=== PATIENT | female | born 1940 | race Asian ===

== ENCOUNTER 2022-02-26 14:00 | Inpatient (IN) | payer MEDICAID ==
[~2022-02-26] VITALS: Ht 162.6 cm; Wt 46.5 kg
[2022-02-26] MEDS ORDERED: methylPREDNISolone SOD SUCC 125 MG/2 ML VL IV ONE (15:15)
[2022-02-26] MEDS ORDERED: cefTRIAXone 1GM/50ML D5W 50 ML IV ONE (15:15)
[2022-02-26] MEDS ORDERED: AZITHROMYCIN 500MG/ 250ML 250 ML IV ONE (15:15)
[2022-02-26 15:25] LABS: Albumin 3.3 g/dL (3.4-5.0); BUN/Creatinine Ratio 31.7; Potassium 3.3 mmol/L (3.5-5.1)
[2022-02-26 15:28] LABS: Bilirubin, Total 0.8 mg/dL (0.2-1.0); Total Protein 7.3 g/dL (6.4-8.2)
[2022-02-26 15:31] LABS: INR 0.97 (0.9-1.15); Partial Thromboplastin Time 29.1 sec (24.6-33.4)
[2022-02-26 15:48] LABS: Basophils # (auto) 0 10 ^3/uL (0-0.2); Basophils % (auto) 0.3 % (0.0-2.0); Eosinophils # (auto) 0.1 10 ^3/uL (0-0.8); Eosinophils % (auto) 1.3 % (0.0-7.0); Hemoglobin 14.5 g/dL (12.2-16.2); Lymphocytes # (auto) 1.2 10 ^3/uL (0.4-5.4); Lymphocytes % (auto) 13.1 % (10.0-50.0); Mean Corpuscular Hemoglobin 31.4 pg (28.0-32.0); Mean Corpuscular Hgb Conc. 33.8 g/dL (32.0-36.0); Mean Corpuscular Volume 92.6 fL (80.0-100.0); Monocytes # (auto) 0.9 10 ^3/uL (0-1.3); Monocytes % (auto) 9.7 % (0.0-12.0); Neutrophils # (auto) 6.9 10 ^3/uL (1.6-8.6); Neutrophils % (auto) 75.6 % (37.0-80.0); Nucleated Red Blood Cells % 0.1 %; Red Blood Cells 4.64 10^6/uL (4.0-5.20); Red Cell Distribution Width 14.1 % (11.8-14.3); White Blood Cell 9.1 10^3/uL (4.4-10.8)
[2022-02-26] MEDS ORDERED: hydrALAZINE HCL 20 MG/ML VL IV ONE (16:00)
[2022-02-26] MEDS ORDERED: ACETAMINOPHEN 500 MG TAB PO PRN (16:30)
[2022-02-26] MEDS ORDERED: MORPHINE SULFATE INJ 2 MG/ml SYRG IV PRN (16:30)
[2022-02-26] MEDS ORDERED: NITROGLYCERIN 0.4 MG SL TAB SL PRN (16:30)
[2022-02-26] MEDS ORDERED: REMDESIVIR PER PHARMACY 0 ML IV SCH (16:30)
[2022-02-26] MEDS ORDERED: LISINOPRIL 10 MG TAB PO ONE (16:30)
[2022-02-26] MEDS ORDERED: PANTOPRAZOLE 40 MG/10 ML VIAL INJ IV ONE (16:45)
[2022-02-26 17:23] LABS: Magnesium 2.2 mg/dL (1.6-2.6)
[2022-02-26 17:31] LABS: CRP High Sensitivity 3.81 mg/dL (< 0.3)
[2022-02-26 17:37] LABS: Thyroid Stimulating Hormone 2.27 uIU/mL (0.358-3.74)
[2022-02-26] MEDS: SODIUM CHLORIDE 0.9% 1,000 ML IV SCH (17:55)
[2022-02-26] MEDS ORDERED: REMDESIVIR 200 MG in NS 210ml LOADING DOSE ADULT IV ONE (18:00)
[2022-02-26 18:51] LABS: Lactic Acid w/Reflex 2.1 mmol/L (0.4-2.0)
[2022-02-26] MEDS: BUDESONIDE (INHALATION) 180 MCG IH IN SCH (22:00)
[2022-02-26] MEDS: ENOXAPARIN SOD 40 MG/0.4 ML SYRINGE SC SCH (22:52)
[2022-02-26 22:59] VITALS: BP 140/84
[2022-02-27] MEDS: ALBUTEROL SULF HFA 90MCG INH 200DOSE IN PRN ×2 (02:43→22:23)
[2022-02-27 06:23] LABS: Basophils # (auto) 0 10 ^3/uL (0-0.2); Basophils % (auto) 0.1 % (0.0-2.0); Eosinophils # (auto) 0 10 ^3/uL (0-0.8); Hematocrit 39.7 % (36.0-46.0); Hemoglobin 13.2 g/dL (12.2-16.2); Lymphocytes # (auto) 0.9 10 ^3/uL (0.4-5.4); Lymphocytes % (auto) 11.4 % (10.0-50.0); Mean Corpuscular Hemoglobin 31.2 pg (28.0-32.0); Mean Corpuscular Hgb Conc. 33.2 g/dL (32.0-36.0); Mean Corpuscular Volume 93.8 fL (80.0-100.0); Monocytes # (auto) 0.8 10 ^3/uL (0-1.3); Monocytes % (auto) 9.6 % (0.0-12.0); Neutrophils # (auto) 6.6 10 ^3/uL (1.6-8.6); Neutrophils % (auto) 78.9 % (37.0-80.0); Red Blood Cells 4.23 10^6/uL (4.0-5.20); White Blood Cell 8.3 10^3/uL (4.4-10.8)
[2022-02-27 06:34] LABS: Albumin 2.8 g/dL (3.4-5.0); BUN/Creatinine Ratio 37.5; Calcium 8.8 mg/dL (8.5-10.1); Potassium 3.4 mmol/L (3.5-5.1)
[2022-02-27 06:36] LABS: Bilirubin, Total 0.4 mg/dL (0.2-1.0); Total Protein 6.8 g/dL (6.4-8.2)
[2022-02-27] MEDS: SODIUM CHLORIDE 0.9% 1,000 ML IV SCH (09:00)
[2022-02-27] MEDS ORDERED: PANTOPRAZOLE 40 MG/10 ML VIAL INJ IV SCH (10:00)
[2022-02-27] MEDS: DexAMETHasone SOD PHOS 10MG/1ML VIAL INJ IV SCH (10:42)
[2022-02-27] MEDS: ENOXAPARIN SOD 40 MG/0.4 ML SYRINGE SC SCH ×2 (10:42→21:41)
[2022-02-27] MEDS: AZITHROMYCIN 500MG/ 250ML 250 ML IV SCH (10:42)
[2022-02-27] MEDS: LISINOPRIL 10 MG TAB PO SCH (10:43)
[2022-02-27] MEDS: BUDESONIDE (INHALATION) 180 MCG IH IN SCH (11:38)
[2022-02-27] MEDS ORDERED: IOHEXOL 350 MG/ML 100ML IJ ONE (13:30)
[2022-02-27] MEDS: REMDESIVIR 100mg 100 MG in SODIUM CHL 0.9% 230 ML IV SCH (15:35)
[2022-02-27] MEDS ORDERED: POTASSIUM EFFERVESENT TAB 25 MEQ PO ONE (21:00)
[2022-02-28 02:06] VITALS: BP 156/95
[2022-02-28 05:00] VITALS: BP 136/88
[2022-02-28 08:00] VITALS: BP 129/90
[2022-02-28 08:13] LABS: Albumin 2.9 g/dL (3.4-5.0); Calcium 8.4 mg/dL (8.5-10.1); Potassium 3.4 mmol/L (3.5-5.1)
[2022-02-28 08:17] LABS: BUN/Creatinine Ratio 39.3; Bilirubin, Total 0.6 mg/dL (0.2-1.0); Total Protein 6.2 g/dL (6.4-8.2)
[2022-02-28] MEDS: DexAMETHasone SOD PHOS 10MG/1ML VIAL INJ IV SCH (09:51)
[2022-02-28] MEDS: AZITHROMYCIN 500MG/ 250ML 250 ML IV SCH (09:52)
[2022-02-28] MEDS: ENOXAPARIN SOD 40 MG/0.4 ML SYRINGE SC SCH ×2 (09:52→21:42)
[2022-02-28] MEDS: LISINOPRIL 10 MG TAB PO SCH (09:52)
[2022-02-28 13:00] VITALS: BP 153/97
[2022-02-28 16:00] VITALS: BP 130/84
[2022-02-28] MEDS: REMDESIVIR 100mg 100 MG in SODIUM CHL 0.9% 230 ML IV SCH (16:10)
[2022-02-28] MEDS: ALBUTEROL SULF HFA 90MCG INH 200DOSE IN PRN (20:20)
[2022-02-28 21:40] VITALS: BP 146/90
[2022-02-28] MEDS: ERGOCALCIFEROL 50,000 UNIT(1.25MG) CAP PO SCH (21:42)
[2022-02-28] MEDS: POTASSIUM CHL 20MEQ/100ML 100 ML IV SCH (21:42)
[2022-03-01] VITALS: BP 146/90
[2022-03-01] MEDS: POTASSIUM CHL 20MEQ/100ML 100 ML IV SCH (02:10)
[2022-03-01 05:00] VITALS: BP 153/88
[2022-03-01 07:40] LABS: Potassium 3.8 mmol/L (3.5-5.1)
[2022-03-01 07:52] LABS: Albumin 2.9 g/dL (3.4-5.0); BUN/Creatinine Ratio 43.1; Bilirubin, Total 0.5 mg/dL (0.2-1.0); Magnesium 2.2 mg/dL (1.6-2.6); Total Protein 5.8 g/dL (6.4-8.2)
[2022-03-01 08:00] VITALS: BP 151/94
[2022-03-01] MEDS: DexAMETHasone SOD PHOS 10MG/1ML VIAL INJ IV SCH (10:23)
[2022-03-01] MEDS: ENOXAPARIN SOD 40 MG/0.4 ML SYRINGE SC SCH ×2 (10:25→21:13)
[2022-03-01] MEDS: AZITHROMYCIN 500MG/ 250ML 250 ML IV SCH ×2 (10:25→14:00)
[2022-03-01] MEDS: LISINOPRIL 10 MG TAB PO SCH (10:26)
[2022-03-01 13:07] VITALS: BP 158/82
[2022-03-01] MEDS: REMDESIVIR 100mg 100 MG in SODIUM CHL 0.9% 230 ML IV SCH (15:31)
[2022-03-01 16:00] VITALS: BP 150/94
[2022-03-01 22:00] VITALS: BP 148/94
[2022-03-02] VITALS (9 sets, daily range): BP systolic 118–158; BP diastolic 78–94
[2022-03-02] MEDS: hydrALAZINE HCL 20 MG/ML VL IV PRN (06:29)
[2022-03-02 07:03] LABS: Basophils # (auto) 0.1 10 ^3/uL (0-0.2); Basophils % (auto) 0.6 % (0.0-2.0); Eosinophils # (auto) 0 10 ^3/uL (0-0.8); Eosinophils % (auto) 0.1 % (0.0-7.0); Hematocrit 39.5 % (36.0-46.0); Hemoglobin 13.5 g/dL (12.2-16.2); Lymphocytes # (auto) 2.6 10 ^3/uL (0.4-5.4); Lymphocytes % (auto) 16.4 % (10.0-50.0); Mean Corpuscular Hemoglobin 31.4 pg (28.0-32.0); Mean Corpuscular Hgb Conc. 34.2 g/dL (32.0-36.0); Mean Corpuscular Volume 91.9 fL (80.0-100.0); Monocytes # (auto) 1.2 10 ^3/uL (0-1.3); Monocytes % (auto) 7.8 % (0.0-12.0); Neutrophils # (auto) 11.8 10 ^3/uL (1.6-8.6); Neutrophils % (auto) 75.1 % (37.0-80.0); Nucleated Red Blood Cells % 0.1 %; Red Cell Distribution Width 14.1 % (11.8-14.3); White Blood Cell 15.7 10^3/uL (4.4-10.8)
[2022-03-02 07:24] LABS: Albumin 3.1 g/dL (3.4-5.0); Calcium 8.5 mg/dL (8.5-10.1); Potassium 3.4 mmol/L (3.5-5.1)
[2022-03-02 07:29] LABS: BUN/Creatinine Ratio 32.8; Bilirubin, Total 0.6 mg/dL (0.2-1.0); Total Protein 6.4 g/dL (6.4-8.2)
[2022-03-02] MEDS: DexAMETHasone SOD PHOS 10MG/1ML VIAL INJ IV SCH (10:54)
[2022-03-02] MEDS: ENOXAPARIN SOD 40 MG/0.4 ML SYRINGE SC SCH ×2 (10:55→22:20)
[2022-03-02] MEDS: LISINOPRIL 10 MG TAB PO SCH (10:56)
[2022-03-02] MEDS: AZITHROMYCIN 500MG/ 250ML 250 ML IV SCH (10:56)
[2022-03-02] MEDS: REMDESIVIR 100mg 100 MG in SODIUM CHL 0.9% 230 ML IV SCH (15:47)
[2022-03-02] MEDS ORDERED: POTASSIUM EFFERVESENT TAB 25 MEQ GT ONE (21:00)
[2022-03-02] MEDS ORDERED: POTASSIUM EFFERVESENT TAB 25 MEQ PO ONE ×2 (23:30→23:45)
[2022-03-03] MEDS: hydrALAZINE HCL 20 MG/ML VL IV PRN (04:55)
[2022-03-03 05:00] VITALS: BP 153/99
[2022-03-03 08:05] LABS: Basophils # (auto) 0.1 10 ^3/uL (0-0.2); Basophils % (auto) 0.6 % (0.0-2.0); Eosinophils # (auto) 0 10 ^3/uL (0-0.8); Eosinophils % (auto) 0.1 % (0.0-7.0); Hematocrit 40.9 % (36.0-46.0); Hemoglobin 13.9 g/dL (12.2-16.2); Lymphocytes # (auto) 2.1 10 ^3/uL (0.4-5.4); Lymphocytes % (auto) 14.5 % (10.0-50.0); Mean Corpuscular Hemoglobin 31.5 pg (28.0-32.0); Mean Corpuscular Hgb Conc. 33.9 g/dL (32.0-36.0); Mean Corpuscular Volume 92.9 fL (80.0-100.0); Monocytes # (auto) 1.1 10 ^3/uL (0-1.3); Monocytes % (auto) 7.9 % (0.0-12.0); Neutrophils # (auto) 11.1 10 ^3/uL (1.6-8.6); Neutrophils % (auto) 76.9 % (37.0-80.0); Nucleated Red Blood Cells % 0.1 %; Red Blood Cells 4.41 10^6/uL (4.0-5.20); Red Cell Distribution Width 14.2 % (11.8-14.3); White Blood Cell 14.4 10^3/uL (4.4-10.8)
[2022-03-03 08:10] LABS: Potassium 4.5 mmol/L (3.5-5.1)
[2022-03-03 08:12] LABS: Bilirubin, Total 0.5 mg/dL (0.2-1.0); Calcium 8.3 mg/dL (8.5-10.1)
[2022-03-03 08:13] LABS: Albumin 2.8 g/dL (3.4-5.0); Magnesium 2.1 mg/dL (1.6-2.6); Total Protein 5.9 g/dL (6.4-8.2)
[2022-03-03 08:54] VITALS: BP 106/44
[2022-03-03] MEDS: DexAMETHasone SOD PHOS 10MG/1ML VIAL INJ IV SCH (09:54)
[2022-03-03] MEDS: LISINOPRIL 10 MG TAB PO SCH (09:55)
[2022-03-03] MEDS: AZITHROMYCIN 500MG/ 250ML 250 ML IV SCH (09:55)
[2022-03-03] MEDS: ENOXAPARIN SOD 40 MG/0.4 ML SYRINGE SC SCH ×2 (09:56→22:00)
[2022-03-03] MEDS: ALBUTEROL SULF HFA 90MCG INH 200DOSE IN PRN (10:56)
[2022-03-03 13:00] VITALS: BP 90/54
[2022-03-03 16:36] VITALS: BP 101/65
[2022-03-03 22:00] VITALS: BP 116/78
[2022-03-04 05:00] VITALS: BP 116/76
[2022-03-04 07:38] LABS: Basophils # (auto) 0 10 ^3/uL (0-0.2); Basophils % (auto) 0.1 % (0.0-2.0); Eosinophils # (auto) 0 10 ^3/uL (0-0.8); Hemoglobin 13.6 g/dL (12.2-16.2); Lymphocytes # (auto) 1.6 10 ^3/uL (0.4-5.4); Lymphocytes % (auto) 11.5 % (10.0-50.0); Mean Corpuscular Hemoglobin 32.2 pg (28.0-32.0); Mean Corpuscular Hgb Conc. 34.9 g/dL (32.0-36.0); Monocytes # (auto) 1.3 10 ^3/uL (0-1.3); Monocytes % (auto) 9.2 % (0.0-12.0); Neutrophils # (auto) 11.2 10 ^3/uL (1.6-8.6); Neutrophils % (auto) 79.2 % (37.0-80.0); Red Blood Cells 4.23 10^6/uL (4.0-5.20); Red Cell Distribution Width 14.1 % (11.8-14.3); White Blood Cell 14.1 10^3/uL (4.4-10.8)
[2022-03-04 07:49] LABS: Albumin 2.7 g/dL (3.4-5.0); BUN/Creatinine Ratio 35.3; Calcium 8.8 mg/dL (8.5-10.1); Potassium 3.7 mmol/L (3.5-5.1)
[2022-03-04 07:53] LABS: Bilirubin, Total 0.5 mg/dL (0.2-1.0); Total Protein 6.3 g/dL (6.4-8.2)
[2022-03-04] MEDS: cefTRIAXone 1GM/50ML D5W 50 ML IV SCH (08:38)
[2022-03-04 09:00] VITALS: BP 122/83
[2022-03-04] MEDS: DexAMETHasone SOD PHOS 10MG/1ML VIAL INJ IV SCH ×2 (10:00→10:24)
[2022-03-04] MEDS: LISINOPRIL 10 MG TAB PO SCH (10:23)
[2022-03-04] MEDS: ENOXAPARIN SOD 40 MG/0.4 ML SYRINGE SC SCH ×2 (10:24→21:47)
[2022-03-04 12:30] VITALS: BP 109/66
[2022-03-04 17:00] VITALS: BP 118/73
[2022-03-04 18:57] VITALS: BP 118/73
[2022-03-04 22:00] VITALS: BP 123/54
[2022-03-05 05:00] VITALS: BP 120/76
[2022-03-05 07:55] LABS: Basophils # (auto) 0 10 ^3/uL (0-0.2); Basophils % (auto) 0.1 % (0.0-2.0); Eosinophils # (auto) 0.2 10 ^3/uL (0-0.8); Hematocrit 40.8 % (36.0-46.0); Hemoglobin 13.7 g/dL (12.2-16.2); Lymphocytes # (auto) 1.8 10 ^3/uL (0.4-5.4); Lymphocytes % (auto) 16.4 % (10.0-50.0); Mean Corpuscular Hemoglobin 31.3 pg (28.0-32.0); Mean Corpuscular Hgb Conc. 33.5 g/dL (32.0-36.0); Mean Corpuscular Volume 93.3 fL (80.0-100.0); Monocytes # (auto) 1.2 10 ^3/uL (0-1.3); Monocytes % (auto) 10.5 % (0.0-12.0); Red Blood Cells 4.37 10^6/uL (4.0-5.20); Red Cell Distribution Width 14.5 % (11.8-14.3); White Blood Cell 11.2 10^3/uL (4.4-10.8)
[2022-03-05 08:17] LABS: Albumin 3.1 g/dL (3.4-5.0); BUN/Creatinine Ratio 37.1; Bilirubin, Total 0.5 mg/dL (0.2-1.0); Calcium 8.8 mg/dL (8.5-10.1); Total Protein 6.6 g/dL (6.4-8.2)
[2022-03-05] MEDS: cefTRIAXone 1GM/50ML D5W 50 ML IV SCH (08:54)
[2022-03-05] MEDS: ENOXAPARIN SOD 40 MG/0.4 ML SYRINGE SC SCH ×2 (08:55→22:26)
[2022-03-05] MEDS: LISINOPRIL 10 MG TAB PO SCH (08:55)
[2022-03-05] MEDS: DexAMETHasone 4 MG TAB PO SCH (08:55)
[2022-03-05 09:00] VITALS: BP 133/66
[2022-03-05 12:43] VITALS: BP 104/68
[2022-03-05] MEDS: CHOLECALCIFEROL (VITD3) 1,000UNIT=25mCg TAB PO SCH (14:08)
[2022-03-05 17:00] VITALS: BP 113/74
[2022-03-05 22:00] VITALS: BP 112/74
[2022-03-06 05:00] VITALS: BP 130/92
[2022-03-06 07:36] LABS: Basophils # (auto) 0 10 ^3/uL (0-0.2); Basophils % (auto) 0.1 % (0.0-2.0); Eosinophils # (auto) 0 10 ^3/uL (0-0.8); Eosinophils % (auto) 0.2 % (0.0-7.0); Hematocrit 39.2 % (36.0-46.0); Hemoglobin 13.2 g/dL (12.2-16.2); Lymphocytes # (auto) 1.2 10 ^3/uL (0.4-5.4); Lymphocytes % (auto) 9.2 % (10.0-50.0); Mean Corpuscular Hemoglobin 31.8 pg (28.0-32.0); Mean Corpuscular Hgb Conc. 33.7 g/dL (32.0-36.0); Mean Corpuscular Volume 94.4 fL (80.0-100.0); Monocytes # (auto) 1.1 10 ^3/uL (0-1.3); Monocytes % (auto) 8.2 % (0.0-12.0); Neutrophils # (auto) 10.9 10 ^3/uL (1.6-8.6); Neutrophils % (auto) 82.3 % (37.0-80.0); Nucleated Red Blood Cells % 0.1 %; Red Blood Cells 4.15 10^6/uL (4.0-5.20); Red Cell Distribution Width 14.4 % (11.8-14.3); White Blood Cell 13.2 10^3/uL (4.4-10.8)
[2022-03-06 07:41] LABS: Albumin 2.8 g/dL (3.4-5.0); BUN/Creatinine Ratio 29.9; Potassium 4.6 mmol/L (3.5-5.1)
[2022-03-06 07:44] LABS: Bilirubin, Total 0.6 mg/dL (0.2-1.0); Total Protein 6.4 g/dL (6.4-8.2)
[2022-03-06 08:00] VITALS: BP 131/84
[2022-03-06 08:30] VITALS: BP 131/84
[2022-03-06] MEDS: cefTRIAXone 1GM/50ML D5W 50 ML IV SCH (12:18)
[2022-03-06] MEDS: CHOLECALCIFEROL (VITD3) 1,000UNIT=25mCg TAB PO SCH (12:18)
[2022-03-06] MEDS: DexAMETHasone 4 MG TAB PO SCH (12:18)
[2022-03-06] MEDS: ACETAMINOPHEN 325 MG TAB PO PRN (12:19)
[2022-03-06] MEDS: ENOXAPARIN SOD 40 MG/0.4 ML SYRINGE SC SCH ×2 (12:20→22:00)
[2022-03-06] MEDS: LISINOPRIL 10 MG TAB PO SCH (12:20)
[2022-03-06 13:30] VITALS: BP 128/82
[2022-03-06 16:30] VITALS: BP 126/79
[2022-03-06 22:00] VITALS: BP 125/83
[2022-03-07 05:00] VITALS: BP 117/81
[2022-03-07 07:02] LABS: Basophils # (auto) 0 10 ^3/uL (0-0.2); Eosinophils # (auto) 0 10 ^3/uL (0-0.8); Hematocrit 37.9 % (36.0-46.0); Hemoglobin 12.6 g/dL (12.2-16.2); Lymphocytes # (auto) 1.1 10 ^3/uL (0.4-5.4); Lymphocytes % (auto) 8.9 % (10.0-50.0); Mean Corpuscular Hemoglobin 31.7 pg (28.0-32.0); Mean Corpuscular Hgb Conc. 33.3 g/dL (32.0-36.0); Monocytes # (auto) 0.9 10 ^3/uL (0-1.3); Monocytes % (auto) 7.3 % (0.0-12.0); Neutrophils % (auto) 83.8 % (37.0-80.0); Red Blood Cells 3.99 10^6/uL (4.0-5.20); Red Cell Distribution Width 14.3 % (11.8-14.3)
[2022-03-07 07:17] LABS: Potassium 4.2 mmol/L (3.5-5.1)
[2022-03-07 07:27] LABS: Albumin 2.8 g/dL (3.4-5.0); BUN/Creatinine Ratio 44.4; Bilirubin, Total 0.4 mg/dL (0.2-1.0); Calcium 8.3 mg/dL (8.5-10.1); Total Protein 6.2 g/dL (6.4-8.2)
[2022-03-07 08:30] VITALS: BP 112/73
[2022-03-07 09:00] VITALS: BP 112/73
[2022-03-07] MEDS: cefTRIAXone 1GM/50ML D5W 50 ML IV SCH (10:45)
[2022-03-07] MEDS: ACETAMINOPHEN 325 MG TAB PO PRN ×3 (10:45→22:05)
[2022-03-07] MEDS: CHOLECALCIFEROL (VITD3) 1,000UNIT=25mCg TAB PO SCH (10:45)
[2022-03-07] MEDS: LISINOPRIL 10 MG TAB PO SCH (10:46)
[2022-03-07] MEDS: DexAMETHasone 4 MG TAB PO SCH (10:46)
[2022-03-07] MEDS: ENOXAPARIN SOD 40 MG/0.4 ML SYRINGE SC SCH ×2 (10:46→22:05)
[2022-03-07 13:00] VITALS: BP 111/72
[2022-03-07 17:00] VITALS: BP 111/74
[2022-03-07] MEDS: ERGOCALCIFEROL 50,000 UNIT(1.25MG) CAP PO SCH (20:15)
[2022-03-07 23:01] VITALS: BP 125/76
[2022-03-08 04:02] VITALS: BP 125/76
[2022-03-08 04:58] VITALS: BP 142/91
[2022-03-08 09:08] VITALS: BP 149/85
[2022-03-08] MEDS: cefTRIAXone 1GM/50ML D5W 50 ML IV SCH (09:08)
[2022-03-08] MEDS: CHOLECALCIFEROL (VITD3) 1,000UNIT=25mCg TAB PO SCH (09:09)
[2022-03-08] MEDS: LISINOPRIL 10 MG TAB PO SCH (09:10)
[2022-03-08] MEDS: DexAMETHasone 4 MG TAB PO SCH (09:11)
[2022-03-08] MEDS: ENOXAPARIN SOD 40 MG/0.4 ML SYRINGE SC SCH ×2 (09:14→22:22)
[2022-03-08 13:00] VITALS: BP 146/86
[2022-03-08 17:00] VITALS: BP 136/79
[2022-03-08] MEDS: ALBUTEROL SULF HFA 90MCG INH 200DOSE IN PRN (19:45)
[2022-03-08 22:00] VITALS: BP 138/84
[2022-03-09 05:00] VITALS: BP 137/89
[2022-03-09] MEDS: ALBUTEROL SULF HFA 90MCG INH 200DOSE IN PRN (07:44)
[2022-03-09 08:52] VITALS: BP 142/84
[2022-03-09] MEDS: LISINOPRIL 10 MG TAB PO SCH (09:22)
[2022-03-09] MEDS: CHOLECALCIFEROL (VITD3) 1,000UNIT=25mCg TAB PO SCH (09:23)
[2022-03-09] MEDS: cefTRIAXone 1GM/50ML D5W 50 ML IV SCH (09:29)
[2022-03-09 12:36] VITALS: BP 100/68
[2022-03-09 16:41] VITALS: BP 96/63
[2022-03-09] MEDS: ENOXAPARIN SOD 40 MG/0.4 ML SYRINGE SC SCH (21:31)
[2022-03-09 22:16] VITALS: BP 98/64
[2022-03-10 05:00] VITALS: BP 100/55
[2022-03-10 08:57] VITALS: BP 113/73
[2022-03-10] MEDS: cefTRIAXone 1GM/50ML D5W 50 ML IV SCH (10:09)
[2022-03-10] MEDS: CHOLECALCIFEROL (VITD3) 1,000UNIT=25mCg TAB PO SCH (10:09)
[2022-03-10] MEDS: LISINOPRIL 10 MG TAB PO SCH (10:10)
[2022-03-10 13:00] VITALS: BP 95/57
[2022-03-10 17:20] VITALS: BP 99/69
[2022-03-10] MEDS: ENOXAPARIN SOD 40 MG/0.4 ML SYRINGE SC SCH (21:40)
[2022-03-10 22:00] VITALS: BP 102/70
[2022-03-11 03:17] VITALS: BP 102/70
[2022-03-11 05:00] VITALS: BP 101/60
[2022-03-11 08:50] VITALS: BP 93/59
[2022-03-11] MEDS: LISINOPRIL 10 MG TAB PO SCH (10:00)
[2022-03-11] MEDS: CHOLECALCIFEROL (VITD3) 1,000UNIT=25mCg TAB PO SCH (11:04)
[2022-03-11 13:00] VITALS: BP 92/67
[2022-03-11 17:00] VITALS: BP 96/57
[2022-03-11] MEDS: ENOXAPARIN SOD 40 MG/0.4 ML SYRINGE SC SCH (21:51)
[2022-03-11 22:00] VITALS: BP 103/69
[2022-03-12 05:00] VITALS: BP 106/72
[2022-03-12 09:00] VITALS: BP 113/69
[2022-03-12] MEDS: CHOLECALCIFEROL (VITD3) 1,000UNIT=25mCg TAB PO SCH (09:29)
[2022-03-12] MEDS: LISINOPRIL 10 MG TAB PO SCH (09:29)
[2022-03-12 13:00] VITALS: BP 98/87
[2022-03-12 17:00] VITALS: BP 102/70
[2022-03-12] MEDS: ENOXAPARIN SOD 40 MG/0.4 ML SYRINGE SC SCH (21:19)
[2022-03-12 22:03] VITALS: BP 112/70
[2022-03-13] VITALS (7 sets, daily range): BP systolic 87–116; BP diastolic 57–72
[2022-03-13] MEDS: CHOLECALCIFEROL (VITD3) 1,000UNIT=25mCg TAB PO SCH (08:58)
[2022-03-13] MEDS: LISINOPRIL 10 MG TAB PO SCH (09:01)
[2022-03-13] MEDS: ENOXAPARIN SOD 40 MG/0.4 ML SYRINGE SC SCH (21:37)
[2022-03-14 05:00] VITALS: BP 106/67
[2022-03-14] MEDS: CHOLECALCIFEROL (VITD3) 1,000UNIT=25mCg TAB PO SCH (09:50)
[2022-03-14 13:00] VITALS: BP 98/61
[2022-03-14 17:00] VITALS: BP 133/85
[2022-03-14] MEDS: ENOXAPARIN SOD 40 MG/0.4 ML SYRINGE SC SCH (21:37)
[2022-03-14 22:15] VITALS: BP 111/74
[2022-03-15 05:15] VITALS: BP 99/71
[2022-03-15 09:00] VITALS: BP 94/60
[2022-03-15] MEDS: CHOLECALCIFEROL (VITD3) 1,000UNIT=25mCg TAB PO SCH (09:40)
[2022-03-15 12:03] VITALS: BP 100/64
[2022-03-15 13:00] VITALS: BP 100/64
== END 2022-03-15 14:00 | disposition home or self-care (01) | DRG 137 ==
LOC: ER 14:00 → TELE 16:35 → TELE-WESTW 02-27 22:18
PROVIDERS: ADMIT Registered Nurse; ATTEND Family Medicine
PROC: XW033E5 Introduction of Remdesivir Anti-infective into Peripheral Vein, Percutaneous Approach, New Technology Group 5 (ICD-10-PCS; principal; 2022-02-26)
DX: U07.1 COVID-19 (principal); J96.01 Acute respiratory failure with hypoxia; J12.82 Pneumonia due to coronavirus disease 2019; J15.6 Pneumonia due to other Gram-negative bacteria; E78.5 Hyperlipidemia, unspecified; R73.03 Prediabetes; I10 Essential (primary) hypertension
CPT/HCPCS: 36415; 70450; 71045; 71275; 80053; 80061; 82306; 82728; 83036; 83605; 83615; 83735; 83880; 84443; 84484; 85025; 85379; 85610; 85730; 86141; 87040; 87426; 87804; 93005; 93306; 94640; 96365; 96366; 96368; 96375; 97110; 97116; 97163; 97530; 99291; C9113; G0378; J0696; J1100; J3480

== ENCOUNTER → 2023-02-27 | Outpatient (CLI) | payer MEDICAID ==
[2023-02-27 11:11] LABS: Basophils # (auto) 0.1 10 ^3/uL (0-0.2); Basophils % (auto) 0.8 % (0.0-2.0); Eosinophils # (auto) 0.3 10 ^3/uL (0-0.8); Eosinophils % (auto) 3.7 % (0.0-7.0); Hematocrit 37.7 % (36.0-46.0); Hemoglobin 12.3 g/dL (12.2-16.2); Lymphocytes # (auto) 1.6 10 ^3/uL (0.4-5.4); Lymphocytes % (auto) 21.6 % (10.0-50.0); Mean Corpuscular Hemoglobin 30.8 pg (28.0-32.0); Mean Corpuscular Hgb Conc. 32.6 g/dL (32.0-36.0); Mean Corpuscular Volume 94.3 fL (80.0-100.0); Monocytes # (auto) 0.6 10 ^3/uL (0-1.3); Monocytes % (auto) 7.4 % (0.0-12.0); Neutrophils % (auto) 66.5 % (37.0-80.0); Red Cell Distribution Width 14.7 % (11.8-14.3); White Blood Cell 7.5 10^3/uL (4.4-10.8)
[2023-02-27 11:28] LABS: Alanine Aminotransferase 15 U/L (7-40); Albumin 4.5 g/dL (3.2-4.8); Alkaline Phosphatase 67 U/L (46-116); Anion Gap 8 (5-15); Aspartate Aminotransferase 16 U/L (13-40); BUN/Creatinine Ratio 14.1 (10.0-20.0); Blood Urea Nitrogen 10 mg/dL (9-23); Calcium 9.2 mg/dL (8.5-10.1); Carbon Dioxide 25 mmol/L (20-30); Chloride 112 mmol/L (98-107); Cholesterol 160 mg/dL (< 200); Glucose 98 mg/dL (74-106); LDL Cholesterol 82 mg/dL (< 100); Potassium 3.7 mmol/L (3.5-5.1); Sodium 145 mmol/L (136-145); Triglycerides 276 mg/dL (< 150)
[2023-02-27 11:29] LABS: Bilirubin, Total 0.4 mg/dL (0.2-1.0); HDL Cholesterol 34 mg/dL (40-59); Total Protein 7.1 g/dL (5.7-8.2)
== END | disposition home or self-care (01) ==
LOC: LAB 10:30
PROVIDERS: ATTEND Nurse Practitioner Family
DX: I10 Essential (primary) hypertension (principal); R73.03 Prediabetes; E78.5 Hyperlipidemia, unspecified; R79.89 Other specified abnormal findings of blood chemistry
CPT/HCPCS: 36415; 80053; 80061; 82043; 82306; 83036; 84439; 84443; 85025